=== PATIENT | female | born 1995 | race Caucasian/White ===

== ENCOUNTER 2017-11-28 08:28 | Emergency (ER) | payer BC ==
[~2017-11-28] VITALS: Ht 154.9 cm; Wt 69.0 kg
[2017-11-28] MEDS ORDERED: PERCOCET 5/31 TABLET PO (09:39)
[2017-11-28 09:55] VITALS: BP 115/81
== END 2017-11-28 09:55 | disposition home or self-care (01) ==
LOC: EME 08:28
DX: S22.31XA Fracture of one rib, right side, initial encounter for closed fracture (principal); W18.2XXA Fall in (into) shower or empty bathtub, initial encounter; Y93.E1 Activity, personal bathing and showering
CPT/HCPCS: 71100; 99281; 99283